=== PATIENT | female | born 1990 | race Caucasian/White ===

== ENCOUNTER 2018-09-25 06:56 | Outpatient (CLI) | payer OTHER ==
[2018-09-25 13:59] LABS: Hemoglobin 14.3 g/dL (12.0-16.0); Mean Corpuscular HGB CONC 33.2 g/dL (32.0-36.0); Mean Corpuscular Hemoglobin 31.3 pg (27.0-31.0); Mean Corpuscular Volume 94.4 fL (78.0-98.0); Mean Platelet Volume 6.9 fL (7.4-10.4); Platelet Count 335 thou/uL (130-400); RBC Distribution Width 11.5 % (11.5-14.5); Red Blood Cell (RBC) Count 4.57 mill/uL (4.20-5.40); White Blood Cell (WBC) Count 9.7 thou/uL (4.8-10.8)
[2018-09-25 14:06] LABS: BHCG - Serum Negative (NEGATIVE); Pregs Control Background? CLEAR/WHITE (CLR/WHITE); Pregs Control Bar Appear? YES (CONTROL BAR)
== END 2018-09-25 06:57 | disposition home or self-care (01) ==
LOC: LABBT 06:56
PROVIDERS: ATTEND Orthopaedic Surgery
DX: Z01.812 Encounter for preprocedural laboratory examination (principal); G56.01 Carpal tunnel syndrome, right upper limb
CPT/HCPCS: 84703; 85027

== ENCOUNTER 2018-09-27 06:50 | Day surgery (SDC) | payer OTHER ==
[2018-09-25 13:45] VITALS: BMI 28.7
[2018-09-27] MEDS ORDERED: Midazolam HCl 2 mg/2 ml Vial ONE (08:45)
[2018-09-27] MEDS ORDERED: Lidocaine 1% w/Epinephrine 1:200K 30 ML VIAL ONE (08:57)
[2018-09-27] MEDS ORDERED: Fentanyl 100 MCG/2 ML VIAL ONE (09:55)
[2018-09-27] MEDS ORDERED: Dexamethasone 20 MG/5 ML VIAL ONE (12:11)
[2018-09-27] MEDS ORDERED: Ondansetron PF 4 MG/2 ML Vial ONE (12:11)
[2018-09-27] MEDS ORDERED: PROPOFOL 200 MG/20 ML VIAL ONE (12:11)
[2018-09-27] MEDS ORDERED: Lidocaine 1% PF 5 ML VIAL ONE (12:11)
--- NOTE | 2018-09-28 07:33 | OP ---
DATE OF PROCEDURE: 09/27/2018 PREOPERATIVE DIAGNOSIS: Right carpal tunnel syndrome. POSTOPERATIVE DIAGNOSIS: Right carpal tunnel syndrome. PROCEDURE PERFORMED: Right open carpal tunnel release. INDUSTRIAL ENGINEERING INTERN: None. ANESTHESIA: LMA with local 7 mL of lidocaine with epinephrine. ESTIMATED BLOOD LOSS: 10 mL. TOURNIQUET TIME: 3 minutes at 250 mmHg. ANTIBIOTICS: Ancef 2 g. COMPLICATIONS: None. HISTORY OF PRESENT ILLNESS: Ms. Gandhi is a 27-year-old female with several years of right carpal tunnel symptoms, night pain, difficulty with failed conservative measures, splinting, continued pain, as well as increasing symptoms. The patient desired open release. I discussed with the patient risks and benefits of surgery to include pain, scar, bleeding, infection, damage to vital structures, decreased range of motion and strength, need for revision in the future. I discussed these risks and benefits and would like to proceed. DESCRIPTION OF PROCEDURE: Time-out was performed designating the patient's right upper extremity as the operative site based on site, consents, and marking. After time-out, the patient's injection was made in line with wrist proximal to flexor crease. Tourniquet was brought up and left for 3 minutes, made incision just radial to the fourth ray, proximal to Barraza's cardinal line down to the flexion crease down through skin, dissected down to the patient's palmar fascia, dissected through, and came down to the palmaris brevis, and through the patient 's transverse carpal ligament; exposed the nerve, it was completely released throughout its course. We left the tourniquet out for 3 minutes, controlledbleeding, washed, and then closed with 4-0 nylon horizontal mattress sutures, injected the remainder of my injection for a total of 7 mL in the incision. We then placed the patient on a soft tissue dressing. The patient will follow up with me in 7 to 10 days. She is going tocover over the dressing until followup. Job ID: [id number] [facility]
== END 2018-09-27 11:15 | disposition home or self-care (01) ==
LOC: SDC 06:50
PROVIDERS: ATTEND Orthopaedic Surgery
PROC: 01N50ZZ Release Median Nerve, Open Approach (ICD-10-PCS; principal; 2018-09-27)
DX: G56.01 Carpal tunnel syndrome, right upper limb (principal); F41.9 Anxiety disorder, unspecified; F32.9 Major depressive disorder, single episode, unspecified; Z90.49 Acquired absence of other specified parts of digestive tract; Z87.891 Personal history of nicotine dependence; Z88.8 Allergy status to other drugs, medicaments and biological substances; Z79.899 Other long term (current) drug therapy; Z98.890 Other specified postprocedural states
CPT/HCPCS: J1100; J2001; J2250; J2405; J2704; J3010

== ENCOUNTER 2019-01-21 16:28 | Emergency (ER) | payer OTHER | END 2019-01-21 17:53 | disposition home or self-care (01) | LOC: ERS 16:28 | DX: K08.89 Other specified disorders of teeth and supporting structures (principal); J45.909 Unspecified asthma, uncomplicated; Z79.01 Long term (current) use of anticoagulants; Z79.899 Other long term (current) drug therapy | CPT/HCPCS: 99282 ==

== ENCOUNTER 2019-05-12 21:35 | Emergency (ER) | payer OTHER ==
[2019-05-12] MEDS ORDERED: Dexamethasone 10 MG/ML VIAL ONE (22:20)
== END 2019-05-12 22:31 | disposition home or self-care (01) ==
LOC: ERS 21:35
DX: J02.9 Acute pharyngitis, unspecified (principal); F41.9 Anxiety disorder, unspecified; F32.9 Major depressive disorder, single episode, unspecified; F17.290 Nicotine dependence, other tobacco product, uncomplicated
CPT/HCPCS: 87081; 87430; 99283; J1100

== ENCOUNTER 2020-04-15 07:33 | Emergency (ER) | payer OTHER ==
--- NOTE | 2020-04-15 08:44 | RAD ---
CHEST 2 VIEWS: HISTORY: Cough and congestion. FINDINGS: Normal cardiac silhouette. Pulmonary vessels and hilum are normal. Costophrenic angles are clear. No consolidation or mass. No pneumothorax or acute osseous abnormalities. IMPRESSION: No acute cardiopulmonary process. POS: OFF
[2020-04-15 16:55] LABS: SARS-CoV-2 MS2 Positive; SARS-CoV-2 N Gene Negative; SARS-CoV-2 S Gene Negative; SARS-CoV-2 by NAA Not Detected (NotDetected); SARS-CoV-2 orf1ab Negative
== END 2020-04-15 08:39 | disposition home or self-care (01) ==
LOC: ERS 07:33
DX: J39.9 Disease of upper respiratory tract, unspecified (principal); F31.9 Bipolar disorder, unspecified; F41.9 Anxiety disorder, unspecified; F17.290 Nicotine dependence, other tobacco product, uncomplicated; Z79.899 Other long term (current) drug therapy; Z20.828 Contact with and (suspected) exposure to other viral communicable diseases
CPT/HCPCS: 71046; 87635; 99282; U0003

== ENCOUNTER 2021-12-09 13:31 | Emergency (ER) | payer OTHER ==
[2021-12-09 14:23] LABS: #Basophils 0.1 thou/uL (0.0-0.2); #Eosinphils 0.1 thou/uL (0.0-0.7); #Lymphocytes 1.8 thou/uL (1.20-3.40); #Monocytes 0.4 thou/uL (0.11-0.59); #Neutrophils 6.6 thou/uL (1.40-6.50); %Basophils 0.9 % (0.0-1.0); %Lymphocytes 20.4 % (21.0-51.0); %Monocytes 4.1 % (0.0-10.0); %Neutrophils 73.6 % (42.0-75.0); Hemoglobin 14.2 g/dL (12.0-16.0); Mean Corpuscular HGB CONC 32.8 g/dL (32.0-36.0); Mean Corpuscular Hemoglobin 30.2 pg (27.0-31.0); Mean Corpuscular Volume 92.2 fL (78.0-98.0); Mean Platelet Volume 7.3 fL (7.4-10.4); Platelet Count 297 thou/uL (130-400); RBC Distribution Width 11.7 % (11.5-14.5); Red Blood Cell (RBC) Count 4.68 mill/uL (4.20-5.40); White Blood Cell (WBC) Count 8.9 thou/uL (4.8-10.8)
[2021-12-09 14:38] LABS: BHCG - Serum Negative (NEGATIVE); Pregs Control Background? CLEAR/WHITE (CLR/WHITE); Pregs Control Bar Appear? YES (CONTROL BAR)
[2021-12-09 15:34] LABS: Albumin 4.5 g/dL (3.5-5.0)
[2021-12-09 15:36] LABS: Calcium 9.5 mg/dL (7.8-10.44); Chloride 107 mmol/L (98-107); Potassium 3.9 mmol/L (3.5-5.1); Sodium 138 mmol/L (136-145)
[2021-12-09 15:37] LABS: Globulin 2.9 g/dL (2.4-3.5); Glucose 88 mg/dL (70-105); Protein, Total 7.4 g/dL (6.0-8.3)
[2021-12-09 15:38] LABS: Anion Gap 15 mmol/L (10-20); Carbon Dioxide 20 mmol/L (22-29)
[2021-12-09 15:39] LABS: Bilirubin, Total 0.8 mg/dL (0.2-1.2)
[2021-12-09 15:40] LABS: Alcohol Less than 10 mg/dL (Less than 10); Alkaline Phosphatase 84 U/L (40-110); Calc. Creatinine Clearance 0 mL/min (70-130)
[2021-12-09 15:41] LABS: BUN (Urea Nitrogen) 14 mg/dL (7.0-18.7)
[2021-12-09 15:42] LABS: AST (SGOT) 19 U/L (5-34)
[2021-12-09 15:43] LABS: ALT (SGPT) 18 U/L (8-55); Acetaminophen Less than 10.0 mcg/mL (10.0-30.0); Salicylate Less than 8.0 mg/dL (15.0-30.0)
[2021-12-09 15:59] LABS: SARS-CoV-2 NAA Rapid Test Not Detected (NotDetected)
[2021-12-09 17:57] LABS: Amphetamine Detected (NotDetected); Barbiturates Screen Not Detected (NotDetected); Benzodiazepine Screen Not Detected (NotDetected); Cocaine Metabolite Screen Not Detected (NotDetected); Methadone Not Detected (NotDetected); Methamphetamine Detected (NotDetected); Opiate Screen Not Detected (NotDetected); Oxycodone Screen Not Detected (NotDetected); Phencyclidine (PCP) Not Detected (NotDetected); THC/Cannabinoid Screen Not Detected (NotDetected); Tricyclic Screen Detected (NotDetected)
[2021-12-09 17:59] LABS: Bacteria/HPF 4+ HPF (None Seen); Bilirubin Negative (Negative); Blood, Urine Trace (Negative); Clarity Turbid (Clear); Glucose, Urine (Dipstick) Normal (Negative); Ketone, Urine Trace mg/dL (Negative); Leukocyte Negative Leu/uL (Negative); Nitrite Negative (Negative); Protein, Urine (Dipstick) Negative (Neg-Trace); RBC/HPF None Seen HPF (0-3); Specific Gravity, Urine 1.011 (1.002-1.036); Urobilinogen Normal mg/dL (Less than 2)
== END 2021-12-10 12:33 ==
LOC: ERS 13:31
DX: T43.212A Poisoning by selective serotonin and norepinephrine reuptake inhibitors, intentional self-harm, initial encounter (principal); F19.10 Other psychoactive substance abuse, uncomplicated; R00.0 Tachycardia, unspecified; J45.909 Unspecified asthma, uncomplicated; F17.290 Nicotine dependence, other tobacco product, uncomplicated; Z20.822 Contact with and (suspected) exposure to COVID-19
CPT/HCPCS: 36415; 80053; 80306; 80307; 81003; 81015; 84703; 85025; 93005; U0002

== ENCOUNTER 2022-08-31 13:47 | Emergency (ER) | payer OTHER ==
[2022-08-31] MEDS ORDERED: Lidocaine 1% w/Epinephrine 1:100K 20 ML VIAL ONE (14:25)
[2022-08-31] MEDS ORDERED: Bacitracin 1 PK ONE (14:45)
== END 2022-08-31 14:57 | disposition home or self-care (01) ==
LOC: ERS 13:47
DX: S51.811A Laceration without foreign body of right forearm, initial encounter (principal); F17.290 Nicotine dependence, other tobacco product, uncomplicated; W26.0XXA Contact with knife, initial encounter
CPT/HCPCS: 12001

== ENCOUNTER 2022-12-26 15:17 | Emergency (ER) | payer OTHER ==
[2022-12-26] MEDS ORDERED: Lorazepam 1 MG TAB ONE (16:47)
[2022-12-26 17:09] LABS: #Basophils 0.1 thou/uL (0.0-0.2); #Eosinphils 0.2 thou/uL (0.0-0.7); #Monocytes 0.7 thou/uL (0.11-0.59); #Neutrophils 5.9 thou/uL (1.40-6.50); %Basophils 0.6 % (0.0-1.0); %Eosinophils 1.7 % (0.0-10.0); %Lymphocytes 26.7 % (21.0-51.0); %Monocytes 7.1 % (0.0-10.0); %Neutrophils 63.6 % (42.0-75.0); Hemoglobin 12.6 g/dL (12.0-16.0); Mean Corpuscular HGB CONC 33.9 g/dL (32.0-36.0); Mean Corpuscular Hemoglobin 30.4 pg (27.0-31.0); Mean Corpuscular Volume 89.9 fl (78.0-98.0); Mean Platelet Volume 9.2 fL (7.4-10.4); Platelet Count 328 10x3/uL (130-400); Red Blood Cell (RBC) Count 4.14 mill/uL (4.20-5.40); White Blood Cell (WBC) Count 9.3 10x3/uL (4.8-10.8)
[2022-12-26 17:36] LABS: Acetaminophen Less than 10 mcg/mL (10.0-30.0); Alcohol Less than 10.0 mg/dL (Less than 10); Salicylate Less than 8.0 mg/dL (15.0-30.0)
[2022-12-26 17:38] LABS: ALT (SGPT) 16 U/L (8-55); AST (SGOT) 17 U/L (5-34); Albumin 4.1 g/dL (3.5-5.0); Alkaline Phosphatase 82 U/L (40-110); Anion Gap 14 mmol/L (10-20); BUN (Urea Nitrogen) 9 mg/dL (7.0-18.7); Bilirubin, Total 0.7 mg/dL (0.2-1.2); Calc. Creatinine Clearance 0 mL/min (70-130); Calcium 9.3 mg/dL (7.8-10.44); Carbon Dioxide 20 mmol/L (22-29); Chloride 110 mmol/L (98-107); Estimated GFR 89; Globulin 2.4 g/dL (2.4-3.5); Glucose 91 mg/dL (70-105); Potassium 3.5 mmol/L (3.5-5.1); Protein, Total 6.5 g/dL (6.0-8.3); Sodium 140 mmol/L (136-145)
[2022-12-26 19:15] LABS: Bacteria/HPF 2+ HPF (None Seen); Bilirubin Negative (Negative); Blood, Urine Negative (Negative); CAUTI Indications for Culture Dysuria,urgency,freq; Clarity Turbid (Clear); Glucose, Urine (Dipstick) Normal (Negative); Ketone, Urine 10 mg/dL (Negative); Leukocyte 500 Leu/uL (Negative); Nitrite Negative (Negative); Pregnancy Test - Urine (BHCG) Negative (Negative); Pregu Control Background? CLEAR/WHITE (CLR/WHITE); Pregu Control Bar Appear? YES (CONTROL BAR); Protein, Urine (Dipstick) 50 mg/dL (Neg-Trace); RBC/HPF 0-3 HPF (0-3); Specific Gravity, Urine 1.035 (1.002-1.036); WBC/HPF 21-50 HPF (0-3)
[2022-12-26 19:16] LABS: Specific Gravity 1.035 (1.002-1.036); Urine Culture Reflex Yes Yes
[2022-12-26 19:21] LABS: Amphetamine Detected (NotDetected); Barbiturates Screen Not Detected (NotDetected); Benzodiazepine Screen Not Detected (NotDetected); Cocaine Metabolite Screen Not Detected (NotDetected); Methadone Not Detected (NotDetected); Methamphetamine Detected (NotDetected); Opiate Screen Not Detected (NotDetected); Oxycodone Screen Not Detected (NotDetected); Phencyclidine (PCP) Not Detected (NotDetected); THC/Cannabinoid Screen Not Detected (NotDetected); Tricyclic Screen Not Detected (NotDetected)
[2022-12-27] MEDS ORDERED: Acetaminophen 500 MG TAB ONE (05:57)
== END 2022-12-27 08:38 ==
LOC: ERS 15:17
DX: R45.851 Suicidal ideations (principal)
CPT/HCPCS: 36415; 80053; 80306; 80307; 81001; 81025; 84443; 85025; 87086; 93005

== ENCOUNTER 2023-02-06 08:17 | Emergency (ER) | payer OTHER ==
[2023-02-06 09:45] LABS: SARS-CoV-2 NAA Rapid Test Not Detected (NotDetected)
[2023-02-06 11:06] LABS: Pregnancy Test - Urine (BHCG) Negative (Negative)
[2023-02-06 11:07] LABS: Pregu Control Background? CLEAR/WHITE (CLR/WHITE); Pregu Control Bar Appear? YES (CONTROL BAR)
[2023-02-06 11:11] LABS: Specific Gravity 1.026 (1.002-1.036)
[2023-02-06 11:17] LABS: Bilirubin Negative (Negative); Blood, Urine Negative (Negative); CAUTI Indications for Culture Dysuria,urgency,freq; Clarity Clear (Clear); Glucose, Urine (Dipstick) Normal (Negative); Ketone, Urine Negative (Negative); Leukocyte 500 Leu/uL (Negative); Nitrite Negative (Negative); Protein, Urine (Dipstick) Negative (Neg-Trace); RBC/HPF 0-3 HPF (0-3); Specific Gravity, Urine 1.026 (1.002-1.036); Squamous Epithelial 0-3 HPF (0-3); Urobilinogen Normal mg/dL (Less than 2); WBC/HPF 21-50 HPF (0-3); pH, Urine 5.5 (5.0-9.0)
[2023-02-06 11:32] LABS: Bacteria/HPF Rare-Few HPF (None Seen)
[2023-02-06 11:33] LABS: Urine Culture Reflex Yes Yes
== END 2023-02-06 11:55 | disposition home or self-care (01) ==
LOC: ERS 08:17
DX: R10.9 Unspecified abdominal pain (principal); B34.9 Viral infection, unspecified; F17.290 Nicotine dependence, other tobacco product, uncomplicated; Z20.822 Contact with and (suspected) exposure to COVID-19
CPT/HCPCS: 81001; 81025; 87086; 99284

== ENCOUNTER 2023-08-05 10:12 | Emergency (ER) | payer OTHER ==
[2023-08-05] MEDS ORDERED: Ondansetron ODT 4 MG TAB ONE (10:50)
== END 2023-08-05 11:40 | disposition home or self-care (01) ==
LOC: ERS 10:12
DX: N89.8 Other specified noninflammatory disorders of vagina (principal); F17.290 Nicotine dependence, other tobacco product, uncomplicated; Z55.6 Problems related to health literacy; Z75.3 Unavailability and inaccessibility of health-care facilities
CPT/HCPCS: 99283; Q0162